=== PATIENT | male | born 1995 | race African-American/Black ===

== ENCOUNTER 2016-12-16 11:46 | Emergency (ER) | payer MEDICAID ==
[~2016-12-16] VITALS: Ht 180.3 cm; Wt 87.0 kg
[2016-12-16] MEDS ORDERED: LORAZEPAM 0.5MG TABLET PO ONE ×2 (12:45→15:30)
[2016-12-16] MEDS ORDERED: ALBUTEROL (0.083%) 2.5MG/3ML NEB HHN STA (14:09)
[2016-12-16 17:05] VITALS: BP 131/63
== END 2016-12-16 17:07 | disposition home or self-care (01) ==
LOC: ER 12:32
DX: F41.9 Anxiety disorder, unspecified (principal); F32.9 Major depressive disorder, single episode, unspecified; F17.200 Nicotine dependence, unspecified, uncomplicated; F12.10 Cannabis abuse, uncomplicated
CPT/HCPCS: 71020; 93005; 94640; 99284; J7611; Z7610